=== PATIENT | male | born 1945 | race Caucasian/White ===

== ENCOUNTER 2019-04-01 17:25 | Emergency (ER) | payer MEDICARE, OTHER ==
[~2019-04-01] VITALS: Ht 177.8 cm; Wt 113.6 kg
[2019-04-01] MEDS ORDERED: LAMI1TAB8 PO (17:41)
[2019-04-01] MEDS ORDERED: ESCI10TA2 PO (17:41)
[2019-04-01] MEDS ORDERED: CARD60TA3 PO (17:41)
[2019-04-01] MEDS ORDERED: LOPR1TAB6 PO (17:41)
[2019-04-01] MEDS ORDERED: FINA5TAB2 PO (17:41)
[2019-04-01] MEDS ORDERED: FLOM0.4C39 PO (17:41)
[2019-04-01] MEDS ORDERED: LISI-538 PO (17:41)
[2019-04-01] MEDS ORDERED: ADACEL/BOOSTRIX VACCINE (DIPHTH/PERTUSS/ACELL/TETANUS)0.5ML SYR (90715) IM ONE (18:00)
[2019-04-01] MEDS ORDERED: IBUP-1022 PO (18:46)
[2019-04-01 19:07] VITALS: BP 159/63
--- NOTE | 2019-04-01 19:08 | REP ---
HISTORY: Knee pain after trauma. COMPARISON: None. There is tricompartmental marginal osteophytosis. There is tricompartmental narrowing particularly affecting the medial compartment and patellofemoral joint. There is no acute fracture, dislocation, or subluxation. IMPRESSION: Chronic changes as described above. Electronically Signed by Ted Tolentino DO 04/01/2019 07:11 P
--- NOTE | 2019-04-01 19:09 | REP ---
HISTORY: Pain after trauma. There is a fracture involving the nasal bone and evidence of a nasal maxillary spine fracture. IMPRESSION: Nasal bone fracture and suspected nasal maxillary spine fracture. Electronically Signed by Ted Tolentino DO 04/01/2019 07:12 P
== END 2019-04-01 19:10 | disposition home or self-care (01) ==
LOC: M ED 17:25
DX: S02.2XXA Fracture of nasal bones, initial encounter for closed fracture (principal); S80.02XA Contusion of left knee, initial encounter; M17.12 Unilateral primary osteoarthritis, left knee; W01.198A Fall on same level from slipping, tripping and stumbling with subsequent striking against other object, initial encounter; Y92.59 Other trade areas as the place of occurrence of the external cause; I10 Essential (primary) hypertension; F32.9 Major depressive disorder, single episode, unspecified; E66.9 Obesity, unspecified; Z88.8 Allergy status to other drugs, medicaments and biological substances; Z79.899 Other long term (current) drug therapy